=== PATIENT | female | born 1985 | race African-American/Black ===

== ENCOUNTER 2018-02-18 17:18 | Emergency (ER) | payer OTHER ==
[~2018-02-18] VITALS: Ht 170.2 cm; Wt 75.0 kg
[~2018-02-18 17:18] MED LIST: FERR1TAB51; PREN-88
[2018-02-18 17:29] VITALS: BP 111/56
[2018-02-18] MEDS ORDERED: ACETAMINOPHEN 325MG TABLET PO ONE (17:45)
== END 2018-02-18 19:00 | disposition home or self-care (01) ==
LOC: ER 18:42
DX: M72.2 Plantar fascial fibromatosis (principal); O26.892 Other specified pregnancy related conditions, second trimester; Z3A.23 23 weeks gestation of pregnancy
CPT/HCPCS: 99282